=== PATIENT | female | born 2000 | race Caucasian/White ===

== ENCOUNTER 2023-03-28 17:37 | Emergency (ER) | payer OTHER, SELFPAY ==
[2023-03-28 17:51] VITALS: BP 147/91; PULSE 116; RESP 18; TEMP 36.5; O2SAT 99; BMI 30.9
--- NOTE | 2023-03-28 17:51 | ED_ITS ---
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 Patient up-to-date with tetanus vaccine. Patient denies any associated weakness, numbness, tingling of the extremity. Related Data Allergies Allergy/AdvReac Type Severity Reaction Status Date / Time latex Allergy Hives Verified 03/28/23 17:51 nickel Allergy Hives Verified 03/28/23 17:51 Review of Systems 2 Review of Systems: Yes all other systems are reviewed and are negative Constitutional: Constitutional: Reports no additional constitutional complaints, Denies body ache(s), Denies chills, Denies fever(s), Denies headache(s) and Denies weakness Eyes: Eyes: Reports no additional eye complaints and Denies change in vision ENT: Reports system reviewed and no additional complaints, except as documented, Denies dizziness, Denies headache(s), Denies nasal congestion, Denies nasal discharge and Denies neck pain Cardiovascular: Cardiovascular: Reports no additional cardiovascular complaints, Denies chest pain, Denies leg edema and Denies dyspnea Respiratory: Respiratory: Reports no additional respiratory complaints, Denies cough and Denies dyspnea Gastrointestinal: Gastrointestinal: Reports no additional gastrointestinal complaints, Denies abdominal pain, Denies diarrhea, Denies nausea and Denies vomiting Genitourinary: Genitourinary: Reports no additional female genitourinary complaints and Denies urinary incontinence Musculoskeletal: Musculoskeletal: Reports no additional musculoskeletal complaints, Denies back pain, Denies arthralgias, Denies joint swelling, Denies neck pain, Denies numbness and Denies tingling Integumentary/Breasts: Skin/Breast: Reports system reviewed and no additional complaints, except as docu, Denies rash and Reports wounds Neurologic: Denies Abnormal speech present, Denies dizziness, Denies headache(s), Denies numbness, Denies tingling and Denies weakness PMFSH Past Medical History Attestation statement: The following information was validated with the patient. Source: old records reviewed and nursing notes reviewed Social History Social History Advance Directives: No Advance Directives Information Provided: Yes Physical Exam 2 Vital Signs: Vital Signs: Last Vital Signs Temp 97.7 F 03/28/23 17:51 Pulse 116 H 03/28/23 17:51 Resp 18 03/28/23 17:51 BP 147/91 H 03/28/23 17:51 Pulse Ox 99 03/28/23 17:51 O2 Del Method Room Air 03/28/23 17:51 BMI result Body Mass Index 30.9 Const: General: cooperative, healthy appearing, comfortable and no acute distress Orientation/consciousness: patient oriented x3 Limitations: no limitations HEENT: Head: Yes normal to inspection Ears: hearing grossly normal bilaterally General nose exam: Normal external nose present Face and sinus: Yes normal facial exam Mouth: Normal oral and palatal mucosa present Throat: Yes posterior oropharynx normal Eyes: General: appearance normal, both eyes and all related structures P upils: Equal, round and reactive pupils present Neck: Neck: Yes normal visual inspection Chest: Chest palpation & inspection: normal inspection of the chest Resp: Effort & Inspection: normal respiratory effort Auscultation: clear to auscultation bilaterally Cardio: Rate: regular rate Rhythm: regular rhythm Peripheral pulses: P eripheral pulses 2+ throughout GI: Inspection: Yes normal to inspection Palpation (GI): Soft to palpation and nontender Auscultation: normal bowel sounds Back/Spine/Pelvis: Thoracic/Lumbar Spine: thoracic and lumbar spine normal to inspection Skin: General skin exam: no rashes or lesions noted Neuro: General: patient oriented x3, no focal motor deficits and normal sensation to monofilament Cranial nerves: Yes Equal, round and reactive pupils present Cognition (Neuro): normal cognition Speech: No Abnormal speech present Gait exam (Neuro): Normal gait present Motor exam (neuro): 5/5 motor strength present throughout Extrem: Hand/finger images: 1. 5cm laceration-bleeding controlled. Full active/passive ROM of thumb. Sensation intact Course Course Course Narrative: This is an RME: Additional HPI, ROS, PE not included below will be deferred to primary provider. Patient is a 22-year-old female who presents emergency department according to Sustained laceration to the left hand from the base of the thumb on the radial aspect of the wrist from a box inspector. Not certain exact date of last tetanus vaccination. No anticoagulants or known coagulation disorder. Plan: To be moved to [facility] for laveration repair Reevaluation(s) Reevaluation #1: this wound was closed in conjunction with [facility] [place] Medications Administered Discontinued Medications Generic Name Dose Route Start Last Admin Trade Name Demar PRN Reason Stop Dose Admin Lidocaine HCl 5 ml 03/28/23 17:59 03/28/23 18:08 Lidocaine Hcl 1 % Mpf 5 Ml Vial INFILTRATI 03/28/23 18:00 5 ml ONCE ONE Administration Lidocaine HCl 5 ml 03/28/23 17:59 03/28/23 18:08 Lidocaine Hcl 1 % Mpf 5 Ml Vial INFILTRATI 03/28/23 18:00 5 ml ONCE ONE Administration Medical Decision Making Medical Decision Making MDM Narrative: 22-year-old female [id number] here with 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 Patient up-to-date with tetanus vaccine. Patient denies any associated weakness, numbness, tingling of the extremity. 5 cm laceration noted to the left thenar See procedure note Differential Diagnosis Differential Diagnoses: The differential diagnosis associated with the presentation includes laceration low concern for tendon injury or bony structure abnormality with full range of motion Independent Historian Clinical information obtained from an independent historian. History obtained from or confirmed by: Friend Tests considered The following testing was considered but not selected: low concern for bony abnormality. X-ray not needed Prescription Management I considered prescription management with: Antibiotic Procedures Laceration Laceration 1: Site: hand Side (If applicable): left Size (cm): 5 Description: linear Local Anesthetic: lidocaine 1% Amount of anesthesia used (mL): 5 Pre-repair: wound explored, irrigated extensively (2L NS with syringe) and deep structures intact Skin layer closed with: vicryl Size (cm): 5-0 Number of sutures: 8 Technique: simple, interrupted Discharge Plan Discharge Clinical Impression: Laceration Patient Disposition: Home, Self-Care Instructions: Finger Laceration (ED) Additional Instructions: Sutures out in 7-10 days Leave the dressing in place and remove after 24 hrs and wash with soap and water Motrin or tylenol for pain Return for signs of infection (redness, drainage) Referrals: Physician,Unknown J [Primary Care Provider] -
[2023-03-28] MEDS: Lidocaine HCl 1 % MPF 5 ML VIAL INFILTRATI ×2 (18:08)
== END 2023-03-28 19:16 | disposition home or self-care (01) ==
PROVIDERS: Emergency Provider Student in an Organized Health Care Education/Training Program
DX: S61.012A Laceration without foreign body of left thumb without damage to nail, initial encounter (principal); W27.8XXA Contact with other nonpowered hand tool, initial encounter; Y93.89 Activity, other specified; Y92.511 Restaurant or cafe as the place of occurrence of the external cause; Y99.0 Civilian activity done for income or pay
CPT/HCPCS: 12002; 99282; 99284

== ENCOUNTER 2023-04-07 18:21 | Emergency (ER) | payer OTHER, SELFPAY ==
[2023-04-07 18:42] VITALS: BP 131/76; PULSE 98; RESP 18; TEMP 36.2; O2SAT 97; BMI 31.4
--- NOTE | 2023-04-07 18:53 | ED.GENADULT ---
HPI - General Adult General Chief complaint: General Medical Stated complaint: needs left hand stitches removed Time Seen by Provider: 04/07/23 18:53 Source: patient, RN notes reviewed and old records reviewed Mode of arrival: ambulatory History of Present Illness HPI narrative: 22-year-old female with no significant past medical history presenting to ED for suture removal from left thumb s/p laceration that was repaired in our ED on 03/28/23 s/p using a hot box operator. Denies pain, drainage, numbness/tingling Related Data Allergies Allergy/AdvReac Type Severity Reaction Status Date / Time latex Allergy Hives Verified 04/07/23 18:42 nickel Allergy Hives Verified 04/07/23 18:42 Review of Systems Review of Systems: Constitutional: No Fever, No Chills ENT/Mouth: No Ear Pain, No Nasal Congestion, No sore throat Cardiovascular: No Chest Pain, No SOB Respiratory: No Cough, No Sputum, No Wheezing Musculoskeletal: No joint pain, No Myalgia Skin: + Skin Lesions, No rash Neuro: No Weakness Yes all other systems are reviewed and are negative Constitutional: Constitutional: Reports as per [facility] Past Medical History Attestation statement: The following information was validated with the patient. Source: old records reviewed Physical Exam ED Vital Signs: Vital Signs - 24 hr 04/07/23 18:42 Temperature 97.1 F Pulse Rate 98 Respiratory Rate 18 Blood Pressure 131/76 Pulse Oximetry 97 Oxygen Delivery Method Room Air BMI result Body Mass Index 31.4 Const General: cooperative, healthy appearing and no acute distress Orientation/consciousness: patient oriented x3 Limitations: no limitations HENMT Head: Yes normal to inspection and Yes atraumatic Ears: hearing grossly normal bilaterally General nose exam: Normal external nose present Face and sinus: Yes normal facial exam Eyes General: appearance normal, both eyes and all related structures EOM: EOMs intact bilaterally Neck Neck: Yes normal visual inspection and Yes no meningeal signs Resp Effort & Inspection: normal respiratory effort and no respiratory distress Cardio Rate: regular rate Skin Other: Appropriately healing laceration to left thenar eminence with sutures intact. No surrounding erythema/drainage or warmth. No fluctuance/induration. Nontender. 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 On exam vital signs, NAD, nontoxic appearing, physical exam noted. sutures intact with appropriate wound healing. No lymphangitis, cellulitis or abscess Plan: Suture removal Results discussed with patient including worrisome signs and symptoms and strict return precautions, and when to return to the emergency department. They verbalized understanding and feel safe for discharge at this time. Differential Diagnosis Differential Diagnoses: The differential diagnosis associated with the presentation includes As above External Record Review External record reviewed: Inpatient record, Office record, Outpatient record, Prior outpatient labs, Prior outpatient radiology, Primary care record and Outside ED record Tests considered The following testing was considered but not selected: As above Discharge Plan Discharge Clinical Impression: Visit for suture removal Patient Disposition: Home, Self-Care Instructions: Stitches Removal (ED) Additional Instructions: Apply bacitracin or Neosporin. You may also apply anti scar cream like mederma If area begins to look infected, is red or there is drainage return to the ED Referrals: Physician,None [Primary Care Provider] - Discharge Date/Time: 04/07/23 19:08
== END 2023-04-07 19:08 | disposition home or self-care (01) ==
PROVIDERS: Emergency Provider Emergency Medicine
DX: Z48.02 Encounter for removal of sutures (principal)
CPT/HCPCS: 99282